=== PATIENT | female | born 1955 | race Caucasian/White ===

== ENCOUNTER → 2017-01-07 | Outpatient (CLI) | payer BC ==
[~2017-01-07] MED LIST: NS 100 ML IV 100 ML IV ONE
[2017-01-07 09:20] LABS: CREATININE 1.01 mg/dL (0.55-1.02)
--- NOTE | 2017-01-07 12:14 | CT ---
HISTORY: Intermittent claudication, history of smoking Study: CT angiography with bilateral lower extremity runoff with and without contrast Comparison: None Technique: Multiple axial images were obtained both prior to and after the administration of IV contrast. 3D r econstructions were performed utilizing radial maximum intensity projection imaging. Dose reduction techniques including Automated Exposure Control (AEC) and adjustment of mA and kV were utilized. Findings: The visualized portions of the solid organs are grossly unremarkable. No evidence of bowel obstructi on or inflammation. No free fluid or significant free intraperitoneal air identified. The appendix i s not clearly visualized. The urinary bladder is unremarkable. Abdominal aorta: There is moderate scattered atherosclerotic plaque seen infrarenal abdominal aorta without evidence of aneurysm or dissection. Inferior mesenteric artery: Appears patent. Common iliac arteries: Minimal atherosclerotic plaque is present without stenosis. External iliac arteries: Minimal atherosclerotic plaque is present without stenosis. Common femoral arteries: Mild plaque is seen at the bifurcations without significant stenosis. Superficial femoral arteries: Widely patent without significant stenosis. Popliteal arteries: Widely patent without significant stenosis. Tibial vasculature: There is normal 3 vessel runoff to the left ankle. On the right side the posteri or tibial artery is very diminutive and is only opacified proximally, not seen at the ankle and foot . The right anterior tibial artery and peroneal artery are widely patent. IMPRESSION: 1. Normal 3 vessel runoff to the left ankle. 2. There is 2 vessel runoff to the right ankle. The right posterior tibial artery appears very dimin utive and is not opacified distally. This is favored to represent anatomic variant as right peroneal artery is a relatively large vessel. The right anterior tibial artery and peroneal artery are widel y patent to the ankle. 3. No significant proximal stenosis. 4. Moderate atherosclerotic disease of the visualized aorta. Reported By:
== END | disposition home or self-care (01) ==
LOC: RAD 08:50
PROVIDERS: ATTEND Internal Medicine
DX: I73.89 Other specified peripheral vascular diseases (principal); F17.290 Nicotine dependence, other tobacco product, uncomplicated
CPT/HCPCS: 36415; 73706; 82565; 84520; A4222

== ENCOUNTER 2017-06-20 11:03 | Observation (INO) | payer BC ==
[2017-06-20 13:11] LABS: BASOPHILS % (AUTO) 0.7 % (0.2-1.0); EOSINOPHILS # (AUTO) 0.1 x10^3/uL (0.0-0.2); HEMATOCRIT 38.3 % (36.0-47.0); HEMOGLOBIN 13.7 g/dL (12.0-16.0); LYMPHOCYTES # (AUTO) 1.8 X10^3/uL (1.3-2.9); LYMPHOCYTES % (AUTO) 30.6 % (21.0-51.0); MEAN CORPUSCULAR HEMOGLOBIN 33.8 pg (27.0-34.0); MEAN CORPUSCULAR HGB CONC 35.7 g/dL (33.0-35.0); MEAN CORPUSCULAR VOLUME 94.5 fL (80.0-100.0); MEAN PLATELET VOLUME 8.4 fL (7.4-11.0); MONOCYTES # (AUTO) 0.5 x10^3/uL (0.3-0.8); MONOCYTES % (AUTO) 9.4 % (0.0-13.0); NEUTROPHILS # (AUTO) 3.3 x10^3/uL (2.2-4.8); NEUTROPHILS % (AUTO) 57.3 % (42.0-75.0); PLATELET COUNT 153 X10^3/uL (150.0-450.0); RED BLOOD COUNT 4.06 X10^6/uL (3.5-5.4); RED CELL DISTRIBUTION WIDTH 12.4 % (11.6-16.5); WHITE BLOOD COUNT 5.8 X10^3/uL (3.6-10.0)
[2017-06-20 13:23] LABS: ALANINE AMINOTRANSFERASE 20 Units/L (12-78); ALBUMIN 3.4 g/dL (3.4-5.0); ALKALINE PHOSPHATASE 67 Units/L (46-116); ASPARTATE AMINO TRANSFERASE 20 Units/L (15-37); BLOOD UREA NITROGEN 11 mg/dL (7-18); CALCIUM 9.1 mg/dL (8.5-10.1); CARBON DIOXIDE 24.8 mmol/L (21-32); CHLORIDE 106 mmol/L (98-107); CREATININE 0.96 mg/dL (0.55-1.02); SODIUM 138 mmol/L (136-145); TOTAL PROTEIN 6.7 g/dL (6.4-8.2); eGFR BLACK RACES > 60 (>60); eGFR NON BLACK RACES > 60 (>60)
--- NOTE | 2017-06-20 13:25 | PCM.PROG ---
Progress Note - Progress Note for Day of Date: 06/20/17 - Subjective Subjective: IS A 62 YEAR OLD PATIENT OF OURS WHO WAS A DIRECT ADMISSION FROM OUR OFFICE. SHE PRESENTED WITH COMPLAINTS OF RUQ PAIN FOR THE PAST SEVERAL DAY. - Past Medical Family Social History Allergies: Allergies Sulfa (Sulfonamide Antibiotics) [SULFA] Allergy (Verified 06/20/17 12:50) - Vital Signs and I&O's Vital Signs: Temperature 97.6 F Pulse Rate [Right Brachial] 69 Respiratory Rate 18 Blood Pressure [Right Arm] 131/70 O2 Sat by Pulse Oximetry 98 - Laboratory and Diagnostics Result Diagrams: 06/20/17 13:00 06/20/17 13:00 Labs: Laboratory WBC 5.8 X10^3/uL (3.6-10.0) 06/20/17 13:00 RBC 4.06 X10^6/uL (3.5-5.4) 06/20/17 13:00 Hgb 13.7 g/dL (12.0-16.0) 06/20/17 13:00 Hct 38.3 % (36.0-47.0) 06/20/17 13:00 MCV 94.5 fL (80.0-100.0) 06/20/17 13:00 MCH 33.8 pg (27.0-34.0) 06/20/17 13:00 MCHC 35.7 g/dL (33.0-35.0) H 06/20/17 13:00 RDW 12.4 % (11.6-16.5) 06/20/17 13:00 Plt Count 153 X10^3/uL (150.0-450.0) 06/20/17 13:00 MPV 8.4 fL (7.4-11.0) 06/20/17 13:00 Neut % 57.3 % (42.0-75.0) 06/20/17 13:00 Lymph % 30.6 % (21.0-51.0) 06/20/17 13:00 Menard % 9.4 % (0.0-13.0) 06/20/17 13:00 Eos % 2.0 % (0.9-2.9) 06/20/17 13:00 Baso % 0.7 % (0.2-1.0) 06/20/17 13:00 Neut # 3.3 x10^3/uL (2.2-4.8) 06/20/17 13:00 Lymph # 1.8 X10^3/uL (1.3-2.9) 06/20/17 13:00 Menard # 0.5 x10^3/uL (0.3-0.8) 06/20/17 13:00 Eos # 0.1 x10^3/uL (0.0-0.2) 06/20/17 13:00 Baso # 0.0 X10^3/uL (0.0-0.1) 06/20/17 13:00 Absolute Nucleated RBC 0.0 /100WBC 06/20/17 13:00
--- NOTE | 2017-06-20 13:47 | DR.H&P ---
H&P - History & Physical for Day of: H&P Date: 06/20/17 - Chief Complaint Chief Complaint: IS A 62 YEAR OLD PATIENT OF OURS WHO WAS A DIRECT ADMISSION FROM OUR OFFICE. SHE PRESENTED WITH COMPLAINTS OF RUQ ABDOMINAL PAIN FOR THE PAST SEVERAL DAYS. SHE ALSO REPORTED SYMPTOMS OF NAUSEA AND VOMITING. SHE DENIES FEVER. ON EXAMINATION, LUNGS ARE CLEAR TO AUSCULTATION. ABDOMEN IS ROUND, SOFT, AND TENDER TO PALPATION. NORMAL BOWEL SOUNDS ARE NOTED IN ALL QUADRANTS. SHE PRESENTED TO THE HOSPITAL FOR A CT ABC/PELVIS WITH CONTRAST LAST NIGHT. IT REPORTED NONSPECIFIC THICKENING AND SOFT TISSUE STRANDING AT THE DISTAL TIP OF THE GALLBLADDER THAT MAY REPRESNET EARLY CHOLECYSTITIS. CHEST XRAY IS CLEAR. WE SPOKE WITH ON THE PHONE AND HE AGREED TO CONSULT WITH PATIENT. WE PLANNED TO ADMIT PATIENT TO THE HOSPITAL FOR FURTHER TREATMENT AND EVALUATION. WE WILL ORDER NS AT 75ML/HR AND OBTAIN A CBC, CMP, CHEST XRAY, AND EKG ON ADMISSION. ON ADMISSION, LABS WERE OBTAINED. CBC AND CMP ARE WITHIN NORMAL LIMITS. URINALYSIS REPORTED WBC 3-5, URINE RC 0-2, BACTERIA 4+, LEUKOCYTES 1+, NITRATES POSITIVE. EKG REPORTED SINUS RHYTHMS WITH HEARTRATE OF 69. - Allergies Allergies/Adverse Reactions: Allergies Allergy/AdvReac Type Severity Reaction Status Date / Time Sulfa (Sulfonamide Allergy Verified 06/20/17 12:50 Antibiotics) [SULFA] sulfamethoxazole AdvReac Verified 06/20/17 13:25 [From Bactrim] trimethoprim [From Bactrim] AdvReac Verified 06/20/17 13:25 - Medications Home Medications: Aspirin EC [ASPIRIN EC 81 MG *] 1 tab PO DAILY 06/20/17 [History Confirmed 06/20] Diazepam [VALIUM 5 MG *] 1 tab PO BID PRN 06/20/17 [History Confirmed 06/20/17] Meloxicam [MOBIC 15 MG *] 1 tab PO DAILY 06/20/17 [History Confirmed 06/20/17] Ranitidine HCl [ZANTAC TAB 150 MG *] 1 tab PO BID 06/20/17 [History Confirmed ] Tramadol HCl [ULTRAM 50 MG *] 1 - 2 tab PO TID PRN 06/20/17 [History Confirmed 06/20/17] - Review of Systems Constitutional: No Symptoms Reported Eyes: No Symptoms Reported ENT: No Symptoms Reported Respiratory: No Symptoms Reported Cardiovascular: No Symptoms Reported Gastrointestinal: See HPI, Nausea, Vomiting, Abdominal Pain Genitourinary: No Symptoms Reported Musculoskeletal: No Symptoms Reported Skin: No Symptoms Reported Neurological: No Symptoms Reported - Physical Exam Vital Signs: Temperature 97.6 F Pulse Rate [Right Brachial] 69 Respiratory Rate 18 Blood Pressure [Right Arm] 131/70 O2 Sat by Pulse Oximetry 98 Oriented: Normal Eyes: Normal Ear: Normal Nose: Normal Throat: Normal Respiratory: Clear Throughout Cardiovascular: Normal : Normal Auscultation: Bowel Sounds: Normal Palpation: Normal Tenderness: Diffuse, RUQ Skin: Normal Musculoskeletal: Normal Psychiatric: Normal Mood Description: Calm Affect: Normal Speech Pattern: Clear - Assessment/Plan (1) Cholecystitis Status: Acute Plan: SURGICAL CONSULT FOR REMOVAL OF GALLBLADDER, ZOFRAN 4MG IV Q4H PRN NAUSEA , MORPHINE 2MG IV Q4H PRN PAIN, CONTINUE TO MONITOR
[2017-06-20] MEDS: NS 1000 ML 1,000 ML IV SCH (13:48)
[2017-06-20 14:02] LABS: APPEARANCE,URINE HAZY (CLEAR); BILIRUBIN,URINE NEGATIVE (NEGATIVE); BLOOD/HEMOGLOBIN,URINE 1+ (NEGATIVE); COLOR,URINE YELLOW (YELLOW); GLUCOSE, URINE NEGATIVE (NEGATIVE); KETONES,URINE NEGATIVE (NEGATIVE); LEUKOCYTE ESTERASE ,URINE 1+ (NEGATIVE); NITRITES,URINE POSITIVE (NEGATIVE); PROTEIN,URINE NEGATIVE (NEGATIVE); UROBILINOGEN,URINE NORMAL (NORMAL)
[2017-06-20 14:04] LABS: RBC,URINE 0-2 /HPF (NEGATIVE)
[2017-06-20 14:05] LABS: BACTERIA,URINE 4+ /HPF (NEGATIVE); SQUAMOUS EPITHELIAL CELL,UR RARE /HPF (NEGATIVE)
[2017-06-20] MEDS ORDERED: ZOFRAN INJ 4 MG VIAL IVP PRN ×2 (14:13→17:19)
--- NOTE | 2017-06-20 14:39 | RAD ---
History: Preop cholecystectomy, hypertension Study: PA chest Findings: The cardiac silhouette appears at upper limits normal for technique. No CHF, pneumonia, or pleural effusion is seen. No acute osseous abnormality is evident. Impression: 1. No acute chest findings. 2. The lungs are clear. Reported By:
[2017-06-20] MEDS ORDERED: NS 50 ML IV + SPIKE MINIBAG* 50 ML IV ONE (14:40)
[2017-06-20] MEDS ORDERED: LR 1000 ML IV 1,000 ML IV ONE (14:40)
[2017-06-20] MEDS ORDERED: ANCEF VIAL 1 GM ONE (14:40)
[2017-06-20 14:43] VITALS: BMI 22.4
[2017-06-20] MEDS ORDERED: FENTANYL INJ 250 mcg ONE (15:20)
[2017-06-20] MEDS ORDERED: SUPRANE IN ONE (15:28)
[2017-06-20] MEDS ORDERED: NORCURON INJ 10 MG VIAL ONE (15:28)
[2017-06-20] MEDS ORDERED: DIPRIVAN VIAL ONE (15:28)
[2017-06-20] MEDS ORDERED: XYLOCAINE 2 % (PLAIN) ONE (15:28)
[2017-06-20] MEDS ORDERED: MARCAINE 0.25% INJ ONE (15:37)
[2017-06-20] MEDS ORDERED: XYLOCAINE 1% and EPINEPHRINE 1:100,000 ONE (15:37)
[2017-06-20] MEDS ORDERED: NS IRRIGATION 3000 ML 3,000 ML IR ONE (16:15)
[2017-06-20] MEDS ORDERED: DILAUDID INJ ONE (16:50)
[2017-06-20] MEDS ORDERED: PERCOCET TAB 5/325 MG PO PRN (17:03)
--- NOTE | 2017-06-20 17:11 | OR.GENERIC ---
Post-Op Note Generic - Post-Op Note Operative Report: Operative Report Date of Operation: June 20, 2017 Pre-Operative Diagnosis: Acute cholecystitis. Post-Operative Diagnosis: Mild acute on chronic cholecystitis. Procedure: Laparoscopic cholecystectomy. Surgeon: Vignesh Galindo MD. Tire Classifier: Anant Cui CRNA. Specimen: Gallbladder. Estimated blood loss: 50 mL. Complications: None. Summary: The patient is a 62 year old female who presented with persistent right upper quadrant pain. The patient was seen in the ER a few days prior and a CT of the abdomen and pelvis demonstrated mild stranding at the gallbladder which suggested cholecystitis. The pain worsened and the patient presented to her primary care. She was admitted to the hospital for pain control. Surgery was consulted. The patient was offered cholecystectomy. The risk and benefits of the procedure including difficulty with anesthesia, bleeding, infection, conversion to open procedure, bile leak, hernia formation, DVT, as well as PE were discussed with the patient. The patient understood these risks and requested the procedure. On June 20, 2017, the patient was brought to the operative theatre. A time out was performed verifying the patient and procedure. The patient received Ancef for pre-operative antibiosis. After satisfactory induction of general endotracheal anesthesia, the abdomen was prepped with Chloraprep and draped in the usual sterile fashion. The skin and subcutaneous tissue at the umbilicus was anesthetized using local anesthetic. The skin was incised sharply. A 12 mm trocar was placed though the incision and into the peritoneal cavity using the Optiview technique. Carbon dioxide was infiltrated through this trocar to obtain a pneumoperitoneum of 15 mm Hg. A camera was placed through this trocar and swept in all directions. No injury was seen from entering the peritoneal cavity. A site was selected in the subxiphoid location for our 2nd trocar. The skin and fascia was anesthetized using local anesthetic. The skin was incised sharply. A 5 mm trocar was placed into the peritoneal cavity under direct visualization. In a similar manner, two additional 5 mm trocars were placed. The first was placed in the mid- clavicular line approximately 2 fingerbreadths inferior to the left costal margin and a second in the anterior axillary line approximately 2 fingerbreadths inferior to the left costal margin. The patient was placed in reverse Trendelenburg and rotated to the patients left. The gallbladder was grasped at the fundus and elevated cephalad and slightly lateral. Omental attachments were taken down using blunt dissection and electrocautery. The peritoneum on the medial and lateral aspects of the infundibulum of the gallbladder was scored using hook electrocautery. Using blunt dissection, the cystic artery and duct were isolated. The critical view of safety was obtained. Both of these structures were divided between endoclips. The gallbladder was dissected free using hook electrocautery. The gallbladder was placed in an endobag and removed through the umbilical trocar site without difficulty. The trocar and camera were placed back inside the abdomen. Our clips were noted in good position. Bleeding of the gallbladder fossa was controlled using electrocautery. At this point, the 5 mm trocars were removed under direct visualization. No bleeding was seen. The umbilical trocar was then removed and pneumoperitoneum released. The fascia at the umbilicus was closed using a 0-Vicryl placed in a [id number] configuration. The skin edges at all incisions were re-approximated using inverted, interrupted 4-0 Monocryl sutures. Benzoin and Steri-strips were placed. Sterile dressings were placed. The patient was awakened and taken to the recovery room in stable condition. There were no complications. All counts were correct.
[2017-06-20] MEDS ORDERED: DILAUDID INJ IVP PRN (17:19)
[2017-06-20] MEDS ORDERED: VALIUM PO PRN (20:08)
[2017-06-20] MEDS: MORPHINE SULFATE INJ 2 MG INJ IVP PRN (20:36)
[2017-06-21] MEDS: NS 1000 ML 1,000 ML IV SCH ×2 (00:52→05:05)
[2017-06-21] MEDS: ZANTAC PO SCH ×2 (00:52→09:07)
[2017-06-21] MEDS: MORPHINE SULFATE INJ 2 MG INJ IVP PRN (05:05)
[2017-06-21 06:40] LABS: BASOPHILS % (AUTO) 0.5 % (0.2-1.0); EOSINOPHILS # (AUTO) 0.1 x10^3/uL (0.0-0.2); EOSINOPHILS % (AUTO) 0.8 % (0.9-2.9); HEMATOCRIT 35.3 % (36.0-47.0); HEMOGLOBIN 12.6 g/dL (12.0-16.0); LYMPHOCYTES # (AUTO) 1.2 X10^3/uL (1.3-2.9); MEAN CORPUSCULAR HEMOGLOBIN 34.1 pg (27.0-34.0); MEAN CORPUSCULAR HGB CONC 35.8 g/dL (33.0-35.0); MEAN CORPUSCULAR VOLUME 95.2 fL (80.0-100.0); MEAN PLATELET VOLUME 8.7 fL (7.4-11.0); MONOCYTES # (AUTO) 0.8 x10^3/uL (0.3-0.8); MONOCYTES % (AUTO) 8.8 % (0.0-13.0); NEUTROPHILS # (AUTO) 6.8 x10^3/uL (2.2-4.8); NEUTROPHILS % (AUTO) 76.9 % (42.0-75.0); PLATELET COUNT 150 X10^3/uL (150.0-450.0); RED CELL DISTRIBUTION WIDTH 12.4 % (11.6-16.5); WHITE BLOOD COUNT 8.9 X10^3/uL (3.6-10.0)
[2017-06-21 06:53] LABS: ALANINE AMINOTRANSFERASE 63 Units/L (12-78); ALKALINE PHOSPHATASE 61 Units/L (46-116); ASPARTATE AMINO TRANSFERASE 73 Units/L (15-37); BLOOD UREA NITROGEN 14 mg/dL (7-18); CALCIUM 8.7 mg/dL (8.5-10.1); CARBON DIOXIDE 23.2 mmol/L (21-32); CHLORIDE 106 mmol/L (98-107); COR CA(FOR HYPOALB) 9.5 mg/dL (8.5-10.1); CREATININE 0.85 mg/dL (0.55-1.02); SODIUM 138 mmol/L (136-145); TOTAL PROTEIN 6.1 g/dL (6.4-8.2); eGFR BLACK RACES > 60 (>60); eGFR NON BLACK RACES > 60 (>60)
[2017-06-21 12:27] VITALS: BP 109/70
== END 2017-06-21 11:05 | disposition home or self-care (01) ==
LOC: UNDOADMOB 11:03 → MED/SURG 11:03
PROVIDERS: ADMIT Internal Medicine; ATTEND Internal Medicine
PROC: 0FT44ZZ Resection of Gallbladder, Percutaneous Endoscopic Approach (ICD-10-PCS; principal; 2017-06-20 15:00)
DX: R10.11 Right upper quadrant pain (principal); K81.0 Acute cholecystitis; R11.2 Nausea with vomiting, unspecified; B96.29 Other Escherichia coli [E. coli] as the cause of diseases classified elsewhere
CPT/HCPCS: 36415; 71010; 80053; 81001; 85025; 87086; 87088; 87186; 93005; A4222; S0020; G0378; J0690; J1170; J2001; J2270; J2405; J3010; J3490; J7120